=== PATIENT | male | born 2000 | race Caucasian/White ===

== ENCOUNTER 2024-04-15 17:52 | Emergency (ER) | payer BC, SELFPAY ==
--- OUTSIDE RECORDS SUMMARY | 2024-04-15 17:54 | XMS_ITS | Clinical Summary ---
Author Organization [facility] Address [address] [place] [address] Phone Care Team Providers Care Electrician Supervisor Airplane Name Role Phone Radha Pope PAC Primary Care Pro vider Allergies No known active allergies Medications No known medications Active Problems No known active problems Immunizations Immunization Administration Dates Next Due DTAP VACCINE 02/24/2001,2000,2000 DTAP VACCINE, UNSPECIFIED FORMULATION 01/24/2002 Hepatitis A Vaccine,unspecif ied Formulation 09/08/2007,09/17/2006 Hepatitis B Vaccine, Pediatric/adolescent 2000,2000 Hepatitis B Vaccine,unspecif ied Formulation 05/25/2001 Hib Vaccine,unspecified Formulation 10/09,02/24/2001,2000,11/02 Human Papillomavirus Vaccine (HPV), quadrivalent 09/06/2015,02/26/2014,12/19/2013 Inactivated Polio Vaccine 2000,2000 MMR Vaccine 09/05/2005,10/25/2001 Meningococcal Group B OMV 09/01/2018 Meningococcal Vaccine 09/01/2018,09/09/2012 Pneumococcal Vaccine Peds - 7 Valent 02/24/2001 Pneumococcal Vaccine, Unspec ified Formulation 08/28/2002 Polio Vaccine,unspecified Formulation 09/05/2005 TDAP Vaccine 09/09/2012 Varicella Vaccine Live 09/08/2007,10/25/2001 Family History Medical History Relation Name Comments Hypertension Father No Known Problems Mother Relation Name Status Comments Father Alive Mother Alive Social History Tobacco Use Types Packs/Day Years Used Date Smoking Tobacco: Never Smokeless Tobacco: Never Tobacco Cessation:Counseling Given: No Alcohol Use Standard Drinks/Week Comments Never 0 (1 standard drink = 0.6 oz pur e alcohol) PHQ-2 Answer Date Recorded Total Score - Questions 1-9 0 04/09 Sexually Active Control Partners Comments Yes Male Condom Female Sex and Gender Information Value Date Recorded Sex Assigned at Not on file Legal Sex Male 4:45 PM CDT Gender Identity Not on file Sexual Orientation Not on file Last Filed Vital Signs Vital Sign Reading Time Taken Comments Blood Pressure 112/60 04/28/2021 3:01 PM CDT Pulse 70 04/28/2021 3:01 PM CDT Temperature 36.9 C (98.4 F) 04/28/2021 3:01 PM CDT Respiratory Rate 18 04/28/2021 3:01 PM CDT Oxygen Saturation 98% 04/28/2021 3:01 PM CDT Inhaled Oxygen Concentration - - Weight 74 kg (163 lb 3.2 oz) 04/28/2021 3:01 PM CDT Height 174 cm (5' 8.5 ) 04/28/2021 3:01 PM CDT Body Mass Index 24.45 04/28/2021 3:01 PM CDT Plan of Treatment Health Maintenance Due Date Last Done Comments Hepatitis C Virus (HCV) Screening 2000 Meningococcal B Immunization (2 of 2 - Bexsero SCDM 2-dose series) 03/04/2019 09/01/2018 DTaP/Tdap/Td Immunization (6 - Td or Tdap) 09/09/2022 09/09/2012, 01/24/2002, 02/24/2001, Additional history exists Influenza Immunization (#1) 2023 SARS-COV-2 Immunization ( - season) 2023 Respiratory Syncytial Virus (RSV) Immunization (Adult) (1 - 1-dose 75+ series) 08/27/2075 Hepatitis B Immunization Completed 002, 2000, 2000 Pneumococcal Immunization Combined Aged Out 08/28/2002, 02/24/2001 No longer eligibl e based on patient's age to complete this topic Human Papillomavirus (HPV) Immunization Completed 09/06/2015, 02/26/2014, 12/19/2013 Meningococcal Immunization (ACWY) Completed 09/01/2018, 09/09/2012 Rotavirus Immunization Aged Out No lo nger eligible based on patient's age to complete this topic Care Teams Electrician Supervisor Airplane Relationship Specialty Start Date End Date Radha Pope, PAULIE [address] [place] [address] PCP - General Physician Area Operations Director 04/28/21
[2024-04-15 18:06] VITALS: BP 120/64; PULSE 69; RESP 16; TEMP 37.3; O2SAT 100
[2024-04-15 18:23] LABS: EDCOVIDSCREEN Negative (Negative); EDINFLUASCREEN Positive (Negative); EDINFLUBSCREEN Negative (Negative)
--- NOTE | 2024-04-15 18:43 | ED_ITS ---
HPI - General Adult General Chief complaint: Upper Respiratory Infection Stated complaint: fever/aches/weak Source: patient Mode of arrival: ambulatory Limitations: no limitations History of Present Illness HPI narrative: Patient presents for evaluation of sick symptoms. Symptom onset 5 days ago. He was at work at the time of symptom onset at which time he developed chills. He had difficulty driving home from work. He also developed a fever, sensation that he was ?drunk? when trying to walk. He also had SOB and generalized body aches. No nausea, vomiting or diarrhea. He is not aware of any specific sick contacts. He states that his symptoms are improving. He does not smoke. He states his employer is requesting a note to excuse him from work, as he missed his scheduled days this week. Related Data Home Medications ?Medication ?Instructions ?Recorded ?Confirmed ?Last Taken ?Type No Home Medications 04/15/24 Unknown History Allergies Allergy/AdvReac Type Severity Reaction Status Date / Time No Known Allergies Allergy Unknown Unverified 11/24/18 19:25 Review of Systems Review of Systems: CONSTITUTIONAL: Reports fever, chills, and sensation that he is ?drunk? when walking EYES: Denies visual changes, redness, or discharge. ENT: Denies rhinorrhea, congestion, sore throat, or otalgia. CARDIOVASCULAR: Denies chest pain, palpitations, or edema. RESPIRATORY: Reports shortness of breath. GASTROINTESTINAL: Denies abdominal pain, nausea, vomiting, or diarrhea. GENITOURINARY: Denies dysuria or hematuria. SKIN: Denies rash or itching. MUSCULOSKELETAL: Reports generalized body aches NEUROLOGIC: Denies headache, numbness, dizziness, or weakness. PSYCHIATRIC: Denies anxiety or depression. ON LICENSE OF [facility] Past Medical History Medical History No pertinent past medical history Surgical History Surgical History No pertinent past surgical history Family History Family History Mother Family history non-contributory Social History Social History Smoking status: Never smoker Substance use: never Living arrangements: with family Gender identity (if verbalized by the patient): Male Sexual Orientation (if Verbalized by the Patient): Straight or Heterosexual Spiritual care concerns: No Exam Narrative: GENERAL: Well-appearing, well-nourished, and in no acute distress. HEAD: Normocephalic, atraumatic. EYES: PERRLA and EOMI. ENT: Nares clear, no rhinorrhea or epistaxis. Mucous membranes moist. Oropharynx without tonsillar hypertrophy exudate or other lesions. Bilateral TMs pearly corona nonbulging NECK: Supple. No adenopathy or masses. No carotid bruits or JVD CHEST: Clear to auscultation. No respiratory distress. No wheezes rales or rhonchi HEART: Regular rate and rhythm. No murmur heard. Normal peripheral pulses. ABDOMEN: Soft, nontender, nondistended, normal active bowel sounds. EXTREMITIES: Normal range of motion. No edema. SKIN: Warm, dry, no rash. NEURO: No focal deficits. Alert and oriented x3. PSYCH: Normal mood and affect. Course Course Emergency Course: This is a 23-year-old male who presented for evaluation of sick symptoms. His influenza a test was positive. He feels that his symptoms are markedly improved. Therefore through shared decision making opted to forego Tamiflu treatment. Increase hydration. OTC agents for symptom management. Follow up with primary provider. Go to the ER for worsening symptoms. Pt in agreement with plan of care. Level of Care: Express Care Visit Vital Signs Vital signs: Vital Signs Temperature 37.3 C 04/15/24 18:06 Pulse Rate 69 04/15/24 18:06 Respiratory Rate 16 04/15/24 18:06 Blood Pressure 120/64 04/15/24 18:06 Pulse Oximetry 100 04/15/24 18:06 Oxygen Delivery Room Air 04/15/24 18:06 Temperature 37.3 C 04/15/24 18:06 Pulse Rate 69 04/15/24 18:06 Respiratory Rate 16 04/15/24 18:06 Blood Pressure 120/64 04/15/24 18:06 Pulse Oximetry 100 04/15/24 18:06 Oxygen Delivery Room Air 04/15/24 18:06 Medical Decision Making Vital Signs Vital Signs: Vital Signs Temperature 37.3 C 04/15/24 18:06 Pulse Rate 69 04/15/24 18:06 Respiratory Rate 16 04/15/24 18:06 Blood Pressure 120/64 04/15/24 18:06 Pulse Oximetry 100 04/15/24 18:06 Oxygen Delivery Room Air 04/15/24 18:06 Temperature 37.3 C 04/15/24 18:06 Pulse Rate 69 04/15/24 18:06 Respiratory Rate 16 04/15/24 18:06 Blood Pressure 120/64 04/15/24 18:06 Pulse Oximetry 100 04/15/24 18:06 Oxygen Delivery Room Air 04/15/24 18:06 Lab Data Labs: Lab Results 04/15/24 Range/Units 18:21 POC Influenza A Ag Positive (Negative) POC Influenza B Ag Negative (Negative) POC SARS CoV-2 Ag Negative (Negative) Discharge Plan Discharge Clinical Impression: Influenza A Patient Disposition: Home, Self-Care Condition: Stable Instructions: Antibiotic Form, Influenza (ED) Patient Language: [place] Prescriptions: No Action No Home Medications Follow-up/Referrals: Shon Love MD [Physician] - Stand Alone Forms: Work/School Release IP Time of Disposition: 18:41
== END 2024-04-15 18:47 | disposition home or self-care (01) ==
PROVIDERS: Emergency Provider Nurse Practitioner
DX: J10.1 Influenza due to other identified influenza virus with other respiratory manifestations (principal); Z20.822 Contact with and (suspected) exposure to COVID-19
CPT/HCPCS: 87426; 87804; 99202; G0463

== ENCOUNTER 2025-01-29 13:27 | Emergency (ER) | payer BC, SELFPAY ==
--- NOTE | 2025-01-29 13:29 | ED.URI ---
HPI - URI/Sore Throat General Chief Complaint: Nausea/Vomiting/Diarrhea Stated Complaint: Vomiting/Diarrhea/Sore Throat Time Seen by Provider: 01/29/25 13:29 Source: patient Mode of arrival: ambulatory Limitations: no limitations History of Present Illness HPI Narrative: Omid is a 24 year old male patient presenting to the clinic today with c/o nausea, vomiting, diarrhea, body aches, nasal congestion, fatigue, cough and sore throat x 4 days. He reports has had liquid stools off and on the past 4 days and has vomited approximately 6-7 times. Denies any chest pain or shortness of breath. Has not taken any medications for his symptoms. Rates pain 2/10 currently. Related Data Allergies Allergy/AdvReac Type Severity Reaction Status Date / Time No Known Allergies Allergy Unknown Verified 01/29/25 13:39 Review of Systems Review of Systems: Pertinent positives per HPI. Patient denies any fever, chills, rash, headache, visual changes, dizziness, shortness of breath, chest pain, palpitations, constipation, abdominal pain, or any urinary issues. PMFSH Past Medical History Medical History No pertinent past medical history Surgical History Surgical History No pertinent past surgical history Family History Family History Mother Family history non-contributory Social History Social History Smoking status: Never smoker Substance use: never Living arrangements: with family Gender identity (if verbalized by the patient): Male Sexual Orientation (if Verbalized by the Patient): Straight or Heterosexual Spiritual care concerns: No Comments At the time of my signature, I reviewed and agree with the nursing past medical, surgical, social, and family history. There is no relevant family history pertinent to the patient complaint. Exam Narrative: General: Well-developed, well nourished, in no apparent distress Head: Normocephalic, atraumatic Eyes: Pupils equally round and reactive to light bilaterally, EOM intact, sclera and conjunctive clear, no discharge, lids normal Ears: TMs intact and clear, ear canals clear, no drainage, grossly hearing normal. Nose: Nares patent, clear nasal discharge, mild inflammation, no sinus tenderness. Mouth: Oral pharynx red with mild tonsillar enlargement without lesions or masses, good dentition, MMM. Neck: Supple, trachea midline, no enlargement of anterior or posterior cervical nodes, no thyroid masses or goiter palpable. Cardio: Regular rate and rhythm, s1 and s2 normal, no murmur appreciated. Resp: Clear to auscultation bilaterally, no rhonchi, rales, wheezing or rubs Course Course Level of Care: Express Care Visit Vital Signs Vital signs: Vital Signs Temperature 36.6 C 01/29/25 13:34 Pulse Rate 85 01/29/25 13:34 Respiratory Rate 16 01/29/25 13:34 Blood Pressure 145/75 H 01/29/25 13:34 Pulse Oximetry 100 01/29/25 13:34 Oxygen Delivery Room Air 01/29/25 13:34 Temperature 36.6 C 01/29/25 13:34 Pulse Rate 85 01/29/25 13:34 Respiratory Rate 16 01/29/25 13:34 Blood Pressure 145/75 H 01/29/25 13:34 Pulse Oximetry 100 01/29/25 13:34 Oxygen Delivery Room Air 01/29/25 13:34 MDM MDM Narrative Medical decision making narrative: At the time of visit patient is resting comfortably on the exam table. Patient appears to be nontoxic. C/o nausea, vomiting, diarrhea, body aches, nasal congestion, fatigue, cough and sore throat x 4 days. He reports has had liquid stools off and on the past 4 days and has vomited approximately 6-7 times. Denies any chest pain or shortness of breath. Has not taken any medications for his symptoms. Rates pain 2/10 currently. On exam patient has bilateral TMs intact and clear, clear nasal drainage, mild anterior turbinate inflammation, oral pharynx red with mild tonsillar enlargement, no cervical lymphadenopathy, heart rates regular rate and rhythm, lung sounds are clear, soft, pliable, nondistended abdomen with bowel sounds present all 4 quadrants. COVID, flu, strep test were ordered. Labs: COVID, influenza, and strep test were all negative in the clinic today. We will send strep for culture. Plan: I suspect patient has viral pharyngitis, URI, gastroenteritis. Prescription for ondansetron was sent to the pharmacy. Supportive measures were discussed with the patient and they voiced understanding discharge instructions and agrees to treatment plan. Return precautions reviewed Differential Diagnosis Differential Diagnosis: Differential diagnostic considerations for upper respiratory infection include upper respiratory infection, croup, otitis media, sinusitis, viral infection, bronchitis, influenza, pharyngitis, strep, uvulitis. Lab Data Labs: Lab Results 01/29/25 Range/Units 13:40 POC Influenza A Ag Negative (Negative) POC Influenza B Ag Negative (Negative) POC SARS CoV-2 Ag Negative (Negative) POC Grp A Strep Screen Negative (Negative) Discharge Plan Discharge Clinical Impression: Gastroenteritis Upper respiratory infection Qualifiers: URI type: unspecified URI Qualified Code(s): J06.9 - Acute upper respiratory infection, unspecified Pharyngitis Qualifiers: Pharyngitis/tonsillitis etiology: unspecified etiology Qualified Code(s): J02.9 - Acute pharyngitis, unspecified Patient Disposition: Home Condition: Stable Instructions: Antibiotic Form, Pharyngitis (ED), Gastroenteritis (ED), Cold Symptoms (ED) Additional Instructions: COVID, influenza, and strep test were all negative in the clinic today. We will send strep for culture if this comes back positive we will contact him place you on antibiotics at that time. Take prescription medications only as prescribed-ondansetron for nausea May take Imodium as needed for diarrhea as long as there is no blood in your stool. Increase fluids and stay well hydrated May take Tylenol or motrin as directed on bottle for pain/fever May use Flonase 1 spray in each nare daily May take OTC antihistamines such as Zyrtec or Claritin daily as directed on bottle May apply Vicks vapor rub to chest to open sinuses Sinus rinses for congestion Cepacol spray, cough drops, throat lozenges, warm tea with honey/lemon, gargle salt water to soothe throat BRAT diet for diarrhea Clear liquids x 24 hours then advance as tolerated for nausea/vomiting Go to the ED if you develop a worsening in your condition- high fever not controlled by Tylenol or Motrin, dehydration, weakness, lethargy, shortness of breath, or chest pain. Follow up with your PCP in 3-5 days if symptoms persist. Patient Language: [place]ese Prescriptions: New ondansetron 8 mg tablet,disintegrating 8 mg PO Q8H PRN (Reason: nausea and vomiting) 3 Days Qty: 10 0RF Follow-up/Referrals: UNKNOWN,DOCTOR [Non-Staff] Stand Alone Forms: Work/School Release IP Time of Disposition: 13:55 Quality NIHSS Nursing Documentation ED NIHSS nursing documentation: reviewed/agree
[2025-01-29 13:34] VITALS: BP 145/75; PULSE 85; RESP 16; TEMP 36.6; O2SAT 100
[2025-01-29 13:55] LABS: EDINFLUASCREEN Negative (Negative); EDINFLUBSCREEN Negative (Negative); EDSTREPNEGPOS1 Negative (Negative)
[2025-01-29 13:58] LABS: EDCOVIDSCREEN Negative (Negative)
--- OUTSIDE RECORDS SUMMARY | 2025-01-29 15:10 | XMS_ITS | Clinical Summary ---
Author Organization [facility] Address [address] [place] [address] Phone Care Team Providers Care Adjunct Nursing Faculty Name Role Phone Unavailable Primary Care Provider Unavailabl e Allergies No known active allergies Medications No [...] 3:01 PM CDT Height 174 cm (5' 8.5) 04/28/2021 3:01 PM CDT Body Mass Index 24.45 04/28/2021 3:01 PM CDT Plan of Treatment Health Maintenance Due Date Last Done Comments Hepatitis C Virus (HCV) Screening 2000 DTaP/Tdap/Td Immunization (6 - Td or Tdap) 09/09/2022 09/09/2012, 01/24/2002, 02/24/2001, Additional history exists Influenza Immunization (#1) 2024 SARS-COV-2 Immunization ( - season) 2024 Respiratory Syncytial Virus (RSV) Immunization (Adult) (1 - 1-dose 75+ series) 08/27/2075 Hepatitis B Immunization Completed 002, 2000, 2000 Pneumococcal Immunization Combined Aged Out 08/28/2002, 02/24/2001 No longer eligibl e based on patient's age to complete this topic Human Papillomavirus (HPV) Immunization Completed 09/06/2015, 02/26/2014, 12/19/2013 Meningococcal B Immunization Discontinued 09/01/2018 Meningococcal Immunization (ACWY) Completed 09/01/2018, 09/09/2012 Rotavirus Immunization Aged Out No lo nger eligible based on patient's age to complete this topic
== END 2025-01-29 14:05 | disposition home or self-care (01) ==
PROVIDERS: Emergency Provider Nurse Practitioner Family
DX: K52.9 Noninfective gastroenteritis and colitis, unspecified (principal); J06.9 Acute upper respiratory infection, unspecified; J02.9 Acute pharyngitis, unspecified; Z20.822 Contact with and (suspected) exposure to COVID-19
CPT/HCPCS: 87081; 87426; 87804; 87880; 99213; G0463